=== PATIENT | female | born 1985 | race African-American/Black ===

== ENCOUNTER 2017-08-28 09:44 | Emergency (ER) | payer MEDICAID, OTHER ==
[~2017-08-28] VITALS: Ht 170.2 cm; Wt 73.0 kg
[2017-08-28] MEDS ORDERED: ONDANSETRON 4MG ODT PO ONE (10:45)
[2017-08-28] MEDS ORDERED: ACETAMINOPHEN 325MG TABLET PO ONE (10:45)
[2017-08-28 12:40] VITALS: BP 125/71
== END 2017-08-28 15:41 | disposition home or self-care (01) ==
LOC: ER 13:47
DX: S02.2XXA Fracture of nasal bones, initial encounter for closed fracture (principal); J32.0 Chronic maxillary sinusitis; S00.83XA Contusion of other part of head, initial encounter; Y09 Assault by unspecified means
CPT/HCPCS: 70450; 70486; 71101; 81025; 99284; Q0162

== ENCOUNTER 2018-06-18 19:07 | Emergency (ER) | payer MEDICAID, OTHER ==
[~2018-06-18] VITALS: Ht 170.2 cm; Wt 66.0 kg
[2018-06-18 19:15] VITALS: BP 149/95
== END 2018-06-18 22:58 | disposition left against medical advice (07) ==
LOC: ER 19:07
DX: R05 Cough (principal); M79.10 Myalgia, unspecified site; Z53.21 Procedure and treatment not carried out due to patient leaving prior to being seen by health care provider